=== PATIENT | male | born 1965 | race Caucasian/White ===

== ENCOUNTER 2022-02-20 18:26 | Emergency (ER) | payer OTHER, SELFPAY ==
--- OUTSIDE RECORDS SUMMARY | 2022-02-20 18:29 | XMS REPORT | Continuity of Care Document ---
:1965 Author Organization [facility] t Address [address] [place] [address] Care Team Providers Name Role Phone Pcp, Patient Does Not Have A Primary Care Physician +[id number] Tiffanie Chu DO Attending Clinician Problems Condition Condition Condition Status Onset Resolution Last Treating Co mments Source Name Details Category Date Date Treatment Clinician Date No known No known Disease Unive rs active active ity of problems problems [facility] Allergies, Adverse Reactions, Alerts Allergy Allergy Status Severity Reaction(s) Onset Inactive Treating Comm ents Source Name Type Date Date Clinician Penicill Propensi Active Itching Unive rs ins ty to 9-20 ity of adverse 00:00: [place] reaction 00 [facility] PENICILL Drug Active Med ITCHING Univers INS Class 9-20 ity of 00:00: [place] 00 [facility] NO KNOWN Drug Active Univers ALLERGIE Class ity of S [facility] Social History Social Habit Start Date Stop Date Quantity Comments Source Exposure to Not sure [facility] SARS-CoV-2 (event) Medica l Branch Sex Assigned At [birth year] [facility] 00:00:00 00:00:00 [facility] Smoking Status Start Date Stop Date Source Unknown if ever smoked [facility] Medications Ordered Filled Start Stop Current Ordering Indication Dosage Frequency Signature Comments Components Source Medication Medication Date Date Medication? Clinician (SIG) Name Name levoFLOXaci 2020- No [id number] 500mg Take 1 Univers n 01-23 10- tablet by ity of (LEVAQUIN) 00:00: 04:59 mouth [place] 500 mg 00 :00 every 24 Medical tablet (twenty-fo Branch ur) hours for 9 days. levoFLOXaci 2020- No [id number] 500mg Take 1 [facility] n 01-23 tablet by ity of (LEVAQUIN) 00:00: 04:59 mouth [place] 500 mg 00 :00 every 24 Medical tablet (-fo Branch ur) hours for 9 days. levoFLOXaci 2020- No 500mg 500 mg, U nivers n 01-22 Oral, ity of (LEVAQUIN) 15:15: 14:25 ONCE, 1 [place] as tablet 500 00 :00 dose, On Medic al mg [facility] 01/22/21 at 1015, MICHAEL
Re ason for Anti-Infec tive: Documented Infection< br>Documen vivek Infection Site: Pelvic
Duration of Therapy: 7 days levoFLOXaci No 500mg 500 mg, U nivers n 01-22 Oral, ity of (LEVAQUIN) 15:15: 14:25 ONCE, 1 [place] as tablet 500 00 :00 dose, On Medic al mg [facility] 01/22/21 at 1015, MICHAEL
Re ason for Anti-Infec tive: Documented Infection< br>Documen vivek Infection Site: Pelvic
Duration of Therapy: 7 days acetaminoph No 650mg 650 mg, U nivers en 01-22 Oral, ity of (TYLENOL) 14:00: 13:08 [place]CE[place] 650 [place] :00 dose, On Medic al mg [facility] 01/22/21 at 0900, MICHAEL morpHINE 2020- No 4mg 4 mg, Slow Un piyush injection 4 01-22 IV Push, ity of mg 14:00: 13:08 ONCE, 1 [place] 00 :00 dose, On Medical [facility] 01/22/21 at 0900, STAT ondansetron 2020- No 4mg 4 mg, Slow Univers (ZOFRAN 01-22 IV Push, ity of (PF)) 14:00: 13:08 ONCE, 1 [place] injection 4 00 :00 dose, On Medi alysa mg [facility] 01/22/21 at 0900, MICHAEL acetaminoph No 650mg 650 mg, U nivers en 01-22 Oral, ity of (TYLENOL) 14:00: 13:08 ONCE, [place] 650 00 :00 dose, On Medic al mg [facility] 01/22/21 at 0900, MICHAEL morpHINE No 4mg 4 mg, Slow Un piyush injection 4 01-22 IV Push, ity of mg 14:00: 13:08 ONCE, 1 [place] 00 :00 dose, On Medical [facility] 01/22/21 at 0900, STAT ondansetron No 4mg 4 mg, Slow Univers (ZOFRAN 01-22 IV Push, ity of (PF)) 14:00: 13:08 ONCE, 1 [place] injection 4 00 :00 dose, On Medi alysa mg [facility] 01/22/21 at 0900, MICHAEL Vital Signs Vital Name Observation Time Observation Value Comments Source Body temperature 2021-01-22 14:01:[address] [facility] Systolic blood 2021-01-22 13:00:00 137 mm[Hg] Univer sity of pressure [facility] Diastolic blood 2021-01-22 13:00:00 79 mm[Hg] [facility] Heart rate 2021-01-22 13:00:00 105 /min [facility] Respiratory rate 2021-01-22 13:00:00 26 /min [facility] Oxygen saturation in 2021-01-22 13:00:00 97 /min [facility] Arterial blood by [facility] Pulse oximetry Branch Body height 2021-01-22 12:47:00 175.3 cm [facility] Body weight 2021-01-22 12:47:00 68.04 kg [facility] BMI 2021-01-22 12:47:00 22.15 kg/m2 [facility] Procedures Procedure Date / Time Performed Performing Clinician Linnea ritchie US TESTICULAR TORSION 2021-01-22 13:37:04 [facility] VW 2021-01-22 13:09:00 Tiffanie Chu [facility] COMP. METABOLIC PANEL 2021-01-22 13:03:00 Tiffanie Chu [facility] ([id number]) Medical Branch CBC WITH DIFF 2021-01-22 13:03:00 Tiffanie Chu [facility] URINALYSIS 2021-01-22 13:03:00 Tiffanie Chu [facility] COVID-19 (ID NOW RAPID 2021-01-22 13:03:00 [facility] Branch Encounters Start End Encounter Admission Attending Care Care Encounter Source Date/Time Date/Time Type Type Clinicians Facility Department ID 2021-01-22 2021-01-22 Emergency Vlad [facility] [id number] Univers 07:51:00 10:00:[address] [place] [id number] [facility] [id number] [facility] [id number] [facility] 084 Branch 2021-01-22 2021-01-22 Emergency X [place] ERT [id number] Univers 07:35:00 07:35:00 [facility] Results Test Description Test Time Test Comments Results Result Comments Source CBC WITH DIFF 2021-01-22 14:34:50 Test Item Value Reference Range Interpretation Comme nts WBC (test code = 6690-2) See_Comment H [A utomated message] The system which ge nerated this result transmit vivek reference range: 4.20 - 1 0.70 10*3/?L. The reference r marielos was not used to interpr et this result as normal/abnor mal. RBC (test code = 789-8) See_Comment [Au tomated message] The system which Protein Bar nerated this result transmit vivek reference range: 4.26 - 5 .52 10*6/?L. The reference r marielos was not used to interpr et this result as normal/abnor mal. HGB (test code = 718-7) 14.9 g/dL 12.2-16.4 HCT (test code = 4544-3) 41.9 % 38.4-49.3 MCV (test code = 787-2) 94.4 fL 81.7-95.6 MCH (test code = 785-6) 33.6 pg 26.1-32.7 H MCHC (test code = 786-4) 35.6 g/dL 31.2-35.0 H RDW-SD (test code = 69814-4) 42.3 fL 38.5-51.6 RDW-CV (test code = 788-0) 12.2 % 12.1-15.4 PLT (test code = 777-3) See_Comment [Au tomated message] The system which ge nerated this result transmit vivek reference range: 150 - 32 8 10*3/?L. The reference range was not used to interpret th is result as normal/abnormal . MPV (test code = 03343-1) 10.3 fL 9.8-13.0 NRBC/100 WBC (test code = See_Comment [ Automated message] The 3269584980) system which ge nerated this result transmit vivek reference range: 0.0 - 10 .0 /100 WBCs. The reference r marielos was not used to interpr et this result as normal/abnor mal. NRBC x10^3 (test code = <0.01 See_Comment [Au tomated message] The 7245892139) system which ge nerated this result transmit vivek reference range: 10*3/?L. The reference range was not u sed to interpret this result as normal/abnormal . GRAN MAT (NEUT) % (test code 85.7 % = 770-8) IMM GRAN % (test code = 1.50 % 9197367127) LYMPH % (test code = 736-9) 3.7 % MONO % (test code = 5905-5) 8.7 % EOS % (test code = 713-8) 0.0 % BASO % (test code = 706-2) 0.4 % GRAN MAT x10^3(ANC) (test 23.44 10*3/uL 1.99-6.95 H code = 3840511298) IMM GRAN x10^3 (test code = 0.41 10*3/uL 0.00-0.06 H 3155398925) LYMPH x10^3 (test code = 1.00 10*3/uL 1.09-3.23 L 731-0) MONO x10^3 (test code = 2.39 10*3/uL 0.36-1.02 H 742-7) EOS x10^3 (test code = <0.03 0.06-0.53 L 711-2) BASO x10^3 (test code = 0.12 10*3/uL 0.01-0.09 H 704-7) BANDS (test code = Increased A 7633567089) TOXIC CHANGES (test code = Present A 803-7) Lab Interpretation (test Abnormal code = 33732-7) [facility] WITH [id number] 14:34:50 Test Item Value Reference Range Interpretation Comments WBC (test code = See_Comment H [Automated 2590-2) message] The system which generated this result transmit vivek reference range : 4.20 - 10.70 10*3/?L. The reference range was not used to interpret this result as normal/abnormal . RBC (test code = See_Comment [Automated 709-8) message] The system which generated this result transmit vivek reference range : 4.26 - 5.52 10*6/?L. The reference range was not used to interpret this result as normal/abnormal . HGB (test code = 14.9 g/dL 12.2-16.4 718-7) HCT (test code = 41.9 % 38.4-49.3 4544-3) MCV (test code = 94.4 fL 81.7-95.6 787-2) MCH (test code = 33.6 pg 26.1-32.7 H 785-6) MCHC (test code = 35.6 g/dL 31.2-35.0 H 786-4) RDW-SD (test code = 42.3 fL 38.5-51.6 06354-0) RDW-CV (test code = 12.2 % 12.1-15.4 788-0) PLT (test code = See_Comment [Automated 777-3) message] The system which generated this result transmit vivek reference range : 150 - 328 10*3/ ?L. The reference range was not u sed to interpret th is result as normal/abnormal . MPV (test code = 10.3 fL 9.8-13.0 56629-7) NRBC/100 WBC (test See_Comment [Automat ed code = 7575211249) message] The system which generated this result transmit vivek reference range : 0.0 - 10.0 /100 WBCs. The reference range was not used to interpret this result as normal/abnormal . NRBC x10^3 (test code <0.01 See_Comment [Auto mated = 2435038222) message] The system which generated this result transmit vivek reference range : 10*3/?L. The reference range was not used to interpret this result as normal/abnormal . GRAN MAT (NEUT) % 85.7 % (test code = 770-8) IMM GRAN % (test code 1.50 % = 0799390991) LYMPH % (test code = 3.7 % 736-9) MONO % (test code = 8.7 % 5905-5) EOS % (test code = 0.0 % 713-8) BASO % (test code = 0.4 % 706-2) GRAN MAT x10^3(ANC) 23.44 10*3/uL 1.99-6.95 H (test code = 5443349845) IMM GRAN x10^3 (test 0.41 10*3/uL 0.00-0.06 H code = 5847407810) LYMPH x10^3 (test code 1.00 10*3/uL 1.09-3.23 L = 731-0) MONO x10^3 (test code 2.39 10*3/uL 0.36-1.02 H = 742-7) EOS x10^3 (test code = <0.03 0.06-0.53 L 711-2) BASO x10^3 (test code 0.12 10*3/uL 0.01-0.09 H = 704-7) BANDS (test code = Increased A 1186642139) TOXIC CHANGES (test Present A code = 803-7) Lab Interpretation Abnormal (test code = 43345-0) [facility]. METABOLIC PANEL ([id number])2021-01-22 13:36:07 Test Item Value Reference Range Interpretation Comments NA (test code = 131 mmol/L 135-145 L 3664858970) K (test code = 4.0 mmol/L 3.5-5.0 9834367136) CL (test code = 99 mmol/L 98-108 0783209349) CO2 TOTAL (test code = 21 mmol/L 23-31 L 1813139008) AGAP (test code = 2-16 7010893841) BUN (test code = 12 mg/dL 7-23 8662782389) GLUCOSE (test code = 179 mg/dL 70-110 H 3633774973) CREATININE (test code = 1.01 mg/dL 0.60-1.25 8709449889) TOTAL BILI (test code = 1.4 mg/dL 0.1-1.1 H 8535911950) CALCIUM (test code = 9.4 mg/dL 8.6-10.6 3225469861) T PROTEIN (test code = 8.7 g/dL 6.3-8.2 H 6827455994) ALBUMIN (test code = 4.4 g/dL 3.5-5.0 3424782209) ALK PHOS (test code = 148 U/L 34-122 H 7009445422) ALTv (test code = 56 U/L 5-50 H 1742-6) AST(SGOT) (test code = 69 U/L 13-40 H 7748186051) eGFR (test code = mL/min/1.73m2 0030880725) DARIN (test code = DARIN) Association of Glomerular Filtration Rate (GFR) and Staging of Kidney Disease* + --+ --+ ------+| GFR (mL/min/1.73 m2) ?| With Kidney Damage ?| ?Without Kidney Damage+ --------+ --------+ +| ?>90 ?| ?Stage one ?| ? Normal ?+ ---+ ---+ -------+| ?60-89 ?| ?Stage two ?| ? Decreased GFR ? + --+ --+ ------+| ?30-59 ?| ?Stage three ?| ? Stage three ? + --+ --+ ------+| ?15-29 ?| ?Stage four ? | ? Stage four ?+ ---+ ---+ -------+| ?<15 (or dialysis) ? ?| ?Stage five ? | ? Stage five ?+ ---+ ---+ -------+ *Each stage assumes the associated GFR level has been in effect for at least three months. ?Stages 1 to 5, with or without kidney disease, indicate chronic kidney disease. Notes: Determination of stages one and two (with eGFR >59mL/min/1.73 m2) requires estimation of kidney damage for at least three months as defined by structural or functional abnormalities of the kidney, manifested by either:Pathological abnormalities or Markers of kidney damage (including abnormalities in the composition of the blood or urine or abnormalities in imaging tests). Lab Interpretation Abnormal (test code = 74384-5) [facility]. METABOLIC PANEL ([id number])2021-01-22 13:36:07 Test Item Value Reference Range Interpretation Comments NA (test code = 131 mmol/L 135-145 L 7904427377) K (test code = 4.0 mmol/L 3.5-5.0 1507000316) CL (test code = 99 mmol/L 98-108 5184654655) CO2 TOTAL (test code = 21 mmol/L 23-31 L 3686831786) AGAP (test code = 2-16 1115889830) BUN (test code = 12 mg/dL 7-23 5732028068) GLUCOSE (test code = 179 mg/dL 70-110 H 2604785636) CREATININE (test code = 1.01 mg/dL 0.60-1.25 6587229908) TOTAL BILI (test code = 1.4 mg/dL 0.1-1.1 H 0659025429) CALCIUM (test code = 9.4 mg/dL 8.6-10.6 9214855190) T PROTEIN (test code = 8.7 g/dL 6.3-8.2 H 2324880510) ALBUMIN (test code = 4.4 g/dL 3.5-5.0 7045321486) ALK PHOS (test code = 148 U/L 34-122 H 1409161916) ALTv (test code = 56 U/L 5-50 H 1742-6) AST(SGOT) (test code = 69 U/L 13-40 H 2666218386) eGFR (test code = mL/min/1.73m2 7161419465) DARIN (test code = DARIN) Association of Glomerular Filtration Rate (GFR) and Staging of Kidney Disease* + --+ --+ ------+| GFR (mL/min/1.73 m2) ?| With Kidney Damage ?| ?Without Kidney Damage+ --------+ --------+ +| ?>90 ?| ?Stage one ?| ? Normal ?+ ---+ ---+ -------+| ?60-89 ?| ?Stage two ?| ? Decreased GFR ? + --+ --+ ------+| ?30-59 ?| ?Stage three ?| ? Stage three ? + --+ --+ ------+| ?15-29 ?| ?Stage four ? | ? Stage four ?+ ---+ ---+ -------+| ?<15 (or dialysis) ? ?| ?Stage five ? | ? Stage five ?+ ---+ ---+ -------+ *Each stage assumes the associated GFR level has been in effect for at least three months. ?Stages 1 to 5, with or without kidney disease, indicate chronic kidney disease. Notes: Determination of stages one and two (with eGFR >59mL/min/1.73 m2) requires estimation of kidney damage for at least three months as defined by structural or functional abnormalities of the kidney, manifested by either:Pathological abnormalities or Markers of kidney damage (including abnormalities in the composition of the blood or urine or abnormalities in imaging tests). Lab Interpretation Abnormal (test code = 94707-0) [facility]"
[2022-02-20 20:31] LABS: Urine Blood Negative (Negative); Urine Glucose Negative (Negative); Urine Protein Negative (Negative); Urine Specific Gravity 1.025 (1.005-1.030)
[2022-02-20 20:43] LABS: Barbiturates NEGATIVE (NEGATIVE); Benzodiazepines NEGATIVE (NEGATIVE); Cocaine NEGATIVE (NEGATIVE); METHAMPHETAM NEGATIVE (NEGATIVE); Methadone NEGATIVE (NEGATIVE); Opiates NEGATIVE (NEGATIVE); Phencyclidine NEGATIVE (NEGATIVE); THC Cannibis POSITIVE (NEGATIVE)
[2022-02-20] MEDS ORDERED: PANTOPRAZOLE 40 MG INJ ONE (20:51)
[2022-02-20] MEDS ORDERED: LIDOCAINE VISCOUS 2% SOLN 15 ML UDC ONE (20:51)
[2022-02-20] MEDS ORDERED: MAGNES/ALUMIN/SIMET 30ML UCUP ONE (20:51)
[2022-02-20 20:57] LABS: Albumin 3.6 g/dL (3.4-5.0); Bilirubin Total 0.2 mg/dL (0.2-1.0); Magnesium 2.2 mg/dL (1.8-2.4); Potassium 4.2 mmol/L (3.5-5.1); Protein, Total 7.8 g/dL (6.4-8.2)
[2022-02-20] MEDS ORDERED: BACLOFEN 10 MG TAB ONE (21:03)
[2022-02-20 21:13] LABS: Absolute Lymphocytes (CBC) 4.1 K/uL (0.7-4.9); Hematocrit 45.5 % (39.6-49.0); Lymphocytes % 37.4 % (15.3-44.8); MCV 95.2 fL (80-100); MPV 8.3 fL (7.6-11.3); RBC Red Blood Cell Count 4.78 M/uL (4.33-5.43)
[2022-02-20] MEDS ORDERED: CHLORPROMAZINE 25 MG TAB PO ONE (22:43)
[2022-02-21] MEDS ORDERED: METOCLOPRAMIDE 10 MG/2mL INJ ONE (00:15)
[2022-02-21] MEDS ORDERED: NA CHLORIDE 0.9% 100 ML IV ONE (00:15)
--- NOTE | 2022-02-21 01:04 | ER ---
Nurse's Notes [facility] Name: Sarabjit Schaeffer Age: 57 yrs Sex: Male : 1965 Arrival Date: 02/20/2022 Time: 18:30 Bed DIS2 Private MD: Diagnosis: Intractable hiccups Presentation: 02/20 19:02 Chief complaint: Patient states: Hiccups non stop for two days. Denies pain. ld1 Coronavirus screen: At this time, the client does not indicate any symptoms associated with coronavirus-19. Ebola Screen: No symptoms or risks identified at this time. Initial Sepsis Screen: Does the patient meet any 2 criteria? No. Patient's initial sepsis screen is negative. Does the patient have a suspected source of infection? No. Patient's initial sepsis screen is negative. Risk Assessment: Do you want to hurt yourself or someone else? Patient reports no desire to harm self or others. Onset of symptoms was February 20, 2022 at 19:02. 19:02 Method Of Arrival: Ambulatory ld1 19:02 Acuity: DIANA 4 ld1 Triage Assessment: 19:00 General: Appears in no apparent distress. comfortable, Behavior is calm, cooperative, ld1 appropriate for age. Pain: Denies pain. EENT: No signs and/or symptoms were reported regarding the EENT system. Neuro: Level of Consciousness is awake, alert, obeys commands, Oriented to person, place, time, situation, Appropriate for age. Cardiovascular: Capillary refill < 3 seconds Patient's skin is warm and dry. Respiratory: Airway is patent Respiratory effort is even, unlabored. GI: Abdomen is flat, non-distended. : No signs and/or symptoms were reported regarding the genitourinary system. Derm: No signs and/or symptoms reported regarding the dermatologic system. Musculoskeletal: No signs and/or symptoms reported regarding the musculoskeletal system. Historical: - Allergies: 19:00 PENICILLINS; ld1 19:00 SEAFOOD; ld1 - PMHx: 19:00 Hepatitis C; ld1 - PSHx: 19:00 None; ld1 - Immunization history:: Adult Immunizations up to date, Client reports receiving the 2nd dose of the Covid vaccine. - Social history:: Smoking status: Patient reports the use of cigarette tobacco products, smokes one pack cigarettes per day. Patient/guardian denies using alcohol. Screenin/20 00:20 Abuse screen: Denies threats or abuse. Denies injuries from another. Nutritional kd3 screening: No deficits noted. Tuberculosis screening: No symptoms or risk factors identified. Fall Risk None identified. IV access (20 points). Assessment: 01:10 General: Appears in no apparent distress. Behavior is calm, cooperative. kd3 Vital Signs: 02/20 19:00 BP 128 / 76; Pulse 72; Resp 18; Temp 98.3(TE); Pulse Ox 99% on R/A; Weight 72.57 kg; ld1 Height 5 ft. 9 in. (175.26 cm); Pain 0/10; 02/21 01:10 BP 124 / 73; Pulse 71; Resp 18; Pulse Ox 100% on R/A; kd3 02/20 19:00 Body Mass Index 23.63 (72.57 kg, 175.26 cm) ld1 ED Course: 02/20 18:30 Patient arrived in ED. as 19:00 Arm band placed on right wrist. ld1 19:02 Triage completed. ld1 19:25 Romi Bronson MD is Attending Physician. sd2 20:34 Urine Drug Screen Sent. oe 20:34 Magnesium Sent. oe 20:34 CMP Sent. oe 20:34 CBC with Diff Sent. oe 20:34 Inserted saline lock: 20 gauge in right antecubital area, using aseptic technique. oe Blood collected. 20:49 Karina De Jesus, RN is Primary Nurse. kd3 02/21 00:20 Patient has correct armband on for positive identification. kd3 00:20 No provider procedures requiring assistance completed. kd3 01:11 IV discontinued, intact, bleeding controlled, No redness/swelling at site. Pressure kd3 dressing applied. Administered Medications: 02/20 20:58 CANCELLED (Physician Discretion): ProTONIX (pantoprazole) 40 mg PO once kd3 20:58 Drug: ProTONIX (pantoprazole) 40 mg Route: IVP; Site: right antecubital; kd3 02/21 00:19 Follow up: Response: No adverse reaction kd3 02/20 20:59 Drug: GI Cocktail without - (Maalox Suspension 30 ml, Lidocaine Liquid 2 % 15 kd3 ml) Route: PO; 02/21 00:19 Follow up: Response: No adverse reaction kd3 02/20 21:13 Drug: Baclofen 10 mg Route: PO; kd3 02/21 00:19 Follow up: Response: No adverse reaction kd3 02/20 23:00 Drug: chlorproMAZINE 25 mg Route: PO; kl 02/21 00:19 Follow up: Response: No adverse reaction kd3 02/20 23:12 Not Given (Other Intervention Used): chlorproMAZINE 25 mg IM once 02/21 00:19 Drug: Reglan (metoCLOPramide) 10 mg Route: IVP; Site: right antecubital; kd3 01:11 Follow up: Response: No adverse reaction kd3 Medication: 00:20 VIS not applicable for this client. kd3 Outcome: 01:03 Discharge ordered by . sd2 01:10 Discharged to home ambulatory. kd3 01:10 Condition: stable 01:10 Condition: stable 01:10 Discharge instructions given to patient, Instructed on discharge instructions, follow up and referral plans. Demonstrated understanding of instructions, follow-up care. 01:11 Patient left the ED. kd3 Signatures: Katarina Coombs, RN RN Magui Stokes [place] oe Dibbern, Lauren, RN RN ld1 Karina De Jesus RN RN kd3 Romi Bronson MD MD sd2
--- NOTE | 2022-02-21 01:05 | EDPHYS ---
Physician Documentation [facility] Name: Sarabjit Schaeffer Age: 57 yrs Sex: Male : 1965 Arrival Date: 02/20/2022 Time: 18:30 Bed DIS2 Private MD: ED Physician Romi Bronson HPI: 02/20 19:46 This 57 yrs old Male presents to ER via Ambulatory with complaints of hiccups x2 days. sd2 19:46 57-year-old male with history of hepatitis C who presents with chief complaint of sd2 hiccups that have been intractable for the past 2 days. He states he has tried multiple home remedies and different things he saw online to help with symptoms without relief. He states he is having difficulty sleeping and eating now and he is causing him some soreness in his abdominal area. He denies any symptoms leading up to this including fevers or recent illness. He has not had any nausea, vomiting or diarrhea. He has never had anything similar to this previously. He does not currently take any medications and has not tried any [id number] medications. He denies any substance abuse.. Historical: - Allergies: 19:00 PENICILLINS; ld1 19:00 SEAFOOD; ld1 - PMHx: 19:00 Hepatitis C; ld1 - PSHx: 19:00 None; ld1 - Immunization history:: Adult Immunizations up to date, Client reports receiving the 2nd dose of the Covid vaccine. - Social history:: Smoking status: Patient reports the use of cigarette tobacco products, smokes one pack cigarettes per day. Patient/guardian denies using alcohol. ROS: 19:46 Constitutional: Negative for fever, chills, and weight loss, Eyes: Negative for injury, sd2 pain, redness, and discharge, ENT: Negative for injury, pain, and discharge, Neck: Negative for injury, pain, and swelling, Cardiovascular: Negative for chest pain, palpitations, and edema, Respiratory: Negative for shortness of breath, cough, wheezing. Abdomen/GI: Negative for abdominal pain, nausea, vomiting, diarrhea. MS/Extremity: Negative for injury and deformity, Skin: Negative for injury, rash, and discoloration, Neuro: Negative for headache, numbness and tingling. Positive for hiccups. Exam: 19:46 Constitutional: This is a well developed, well nourished patient who is awake, alert, sd2 and in no acute distress. Pt noted to have hiccups throughout exam. Head/Face: Normocephalic, atraumatic. Eyes: EOMI, normal conjunctiva bilaterally Chest/axilla: Normal chest wall appearance and motion. Nontender with no deformity. Cardiovascular: Regular rate and rhythm with a normal S1 and S2. No gallops, murmurs, or rubs. 2+ distal pulses. Respiratory: Lungs have equal breath sounds bilaterally, clear to auscultation and percussion. No rales, rhonchi or wheezes noted. No increased work of breathing, no retractions or nasal flaring. Abdomen/GI: Soft, non-tender, with normal bowel sounds. No guarding or rebound. No evidence of tenderness throughout. Skin: Warm, dry with normal turgor. Normal color with no rashes, no lesions, and no evidence of cellulitis. MS/ Extremity: Pulses equal, no cyanosis. Neurovascular intact. Full, normal range of motion. Ambulatory without difficulty. Psych: Awake, alert, with orientation to person, place and time. Behavior, mood, and affect are within normal limits. 23:51 ECG was reviewed by the Attending Physician. NSR, rate 67, PACs present, no STEMI sd2 criteria Vital Signs: 19:00 BP 128 / 76; Pulse 72; Resp 18; Temp 98.3(TE); Pulse Ox 99% on R/A; Weight 72.57 kg; ld1 Height 5 ft. 9 in. (175.26 cm); Pain 0/10; 02/21 01:10 BP 124 / 73; Pulse 71; Resp 18; Pulse Ox 100% on R/A; kd3 02/20 19:00 Body Mass Index 23.63 (72.57 kg, 175.26 cm) ld1 MDM: 02/20 19:25 Patient medically screened. sd2 19:46 Differential Diagnosis Nerve abnormality, toxidrome, medication induced, GERD among sd2 others. Data reviewed: vital signs, nurses notes. 02/21 01:01 Data reviewed: lab test result(s), EKG. Counseling: I had a detailed discussion with sd2 the patient and/or guardian regarding: the historical points, exam findings, and any diagnostic results supporting the discharge/admit diagnosis, lab results, the need for outpatient follow up, to return to the emergency department if symptoms worsen or persist or if there are any questions or concerns that arise at home. Medical screen evaluation completed. EMTALA emergency medical condition absent. ED course: Hiccups significantly improved after treatment. Advised of need for continued supportive care and outpatient follow up with PCP. Verbalizes understanding of discharge plan and strict return precautions.. 02/20 19:46 Order name: CBC with Diff; Complete Time: 21:41 sd2 02/20 19:46 Order name: CMP; Complete Time: 21:41 sd2 02/20 19:46 Order name: Magnesium; Complete Time: 21:41 sd2 02/20 19:46 Order name: Urine Drug Screen; Complete Time: 21:41 sd2 02/20 19:46 Order name: Ethanol; Complete Time: 22:35 sd2 02/20 20:31 Order name: Urine Dipstick-Ancillary; Complete Time: 21:41 EDMS 02/20 19:46 Order name: Urine Dipstick-Ancillary (obtain specimen); Complete Time: 20:34 sd2 02/20 23:25 Order name: EKG - Nurse/Tech; Complete Time: 00:19 sd2 Administered Medications: 02/20 20:58 CANCELLED (Physician Discretion): ProTONIX (pantoprazole) 40 mg PO once kd3 20:58 Drug: ProTONIX (pantoprazole) 40 mg Route: IVP; Site: right antecubital; kd3 02/21 00:19 Follow up: Response: No adverse reaction kd3 02/20 20:59 Drug: GI Cocktail without - (Maalox Suspension 30 ml, Lidocaine Liquid 2 % 15 kd3 ml) Route: PO; 02/21 00:19 Follow up: Response: No adverse reaction kd3 02/20 21:13 Drug: Baclofen 10 mg Route: PO; kd3 02/21 00:19 Follow up: Response: No adverse reaction kd3 02/20 23:00 Drug: chlorproMAZINE 25 mg Route: PO; kl 02/21 00:19 Follow up: Response: No adverse reaction kd3 02/20 23:12 Not Given (Other Intervention Used): chlorproMAZINE 25 mg IM once kl 02/21 00:19 Drug: Reglan (metoCLOPramide) 10 mg Route: IVP; Site: right antecubital; kd3 01:11 Follow up: Response: No adverse reaction kd3 Disposition Summary: 02/21/22 01:03 Discharge Ordered Location: Home sd2 Problem: new sd2 Symptoms: have improved sd2 Condition: Stable sd2 Diagnosis - Intractable hiccups sd2 Followup: sd2 - With: Private Physician - When: 2 - 3 days - Reason: Recheck today's complaints, Continuance of care, Re-evaluation by your physician Discharge Instructions: - Discharge Summary Sheet sd2 - Hiccups sd2 Forms: - Medication Reconciliation Form sd2 - Thank You Letter sd2 - Antibiotic Education sd2 - Prescription Opioid Use sd2 Signatures: Dispatcher [employer] EDKatarina Fuentes RN RN kl Jackie Arndt RN RN ld1 Karina De Jesus RN RN kd3 Romi Bronson MD MD sd2 Corrections: (The following items were deleted from the chart) 02/20 20:58 19:46 ProTONIX (pantoprazole) 40 mg PO once ordered. sd2 kd3
[2022-02-21 01:21] VITALS: TEMP 98.3
[2022-02-21 01:22] VITALS: BP 124/73; O2SAT 100
--- NOTE | 2022-02-21 16:14 | EKG ---
Test Date: 2022-02-20 Test Time: 23:49:58 Threading Machine Feeder Automatic: SNEHA MEASUREMENT RESULTS: Intervals: Rate: 67 FL: 152 QRSD: 88 QT: 384 QTc: 405 [place]: P: 68 FL: 152 QRS: 56 T: 74 INTERPRETIVE STATEMENTS: Sinus rhythm with premature atrial complexes Otherwise normal ECG Compared to ECG 04/17/2016 20:08:57 Atrial premature complex(es) now present Electronically Signed On 02-21-22 16:13:27 CDT by Kwan Mosquera
== END 2022-02-21 01:11 | disposition home or self-care (01) ==
LOC: ER 18:26
DX: R06.6 Hiccough (principal); F17.210 Nicotine dependence, cigarettes, uncomplicated; Z88.0 Allergy status to penicillin; Z88.2 Allergy status to sulfonamides
CPT/HCPCS: 36415; 80053; 80307; 80320; 81003; 83735; 85025; 93005; 96374; 96375; 99283; C9113; J2765; Q0161

== ENCOUNTER 2023-10-27 10:09 | Emergency (ER) | payer OTHER ==
--- NOTE | 2023-10-27 10:29 | ER ---
Nurse's Notes [facility] Name: Sarabjit Schaeffer Age: 58 yrs Sex: Male : 1965 Arrival Date: 10/27/2023 Time: 10:09 Bed IW3 Private MD: Diagnosis: Toxic effect of venom of bees, accidental (unintentional) Presentation: 10/26 10:21 Chief complaint: Patient states: Bee stings to right hand yesterday afternoon, woke jl7 this morning with right hand swelling, swelling on left side of neck. Coronavirus screen: At this time, the client does not indicate any symptoms associated with coronavirus-19. Ebola Screen: No symptoms or risks identified at this time. Onset: The symptoms/episode began/occurred yesterday. Anaphylaxis evaluation, no signs or symptoms of anaphylaxis were noted. Initial Sepsis Screen: Does the patient meet any 2 criteria? No. Patient's initial sepsis screen is negative. Does the patient have a suspected source of infection? No. Patient's initial sepsis screen is negative. Risk Assessment: Do you want to hurt yourself or someone else? Patient reports no desire to harm self or others. Onset of symptoms was October 26, 2023. 10:21 Method Of Arrival: Ambulatory 7 10:21 Acuity: DIANA 4 jl7 Triage Assessment: 10:23 General: Appears in no apparent distress. uncomfortable, Behavior is calm, cooperative, jl7 appropriate for age. Pain: Complains of pain in right hand Pain currently is 8 out of 10 on a pain scale. Neuro: Level of Consciousness is awake, alert, obeys commands, Oriented to person, place, time, situation. Cardiovascular: Patient's skin is warm and dry. Respiratory: Airway is patent Respiratory effort is even, unlabored, Respiratory pattern is regular, symmetrical. Derm: Skin is pink, warm \T\ dry. Musculoskeletal: Swelling present in right hand. Historical: - Allergies: 10:23 PENICILLINS; jl7 10:23 SEAFOOD; jl7 10:23 Bees; jl7 - Home Meds: 10:23 None [Active]; jl7 - PMHx: 10:23 Hepatitis C; jl7 - PSHx: 10:23 None; jl7 - Immunization history:: Adult Immunizations unknown. - Infectious Disease History:: Denies. - Social history:: Smoking status: Patient reports the use of cigarette tobacco products, smokes 1.5 packs per day. - Family history:: not pertinent. Assessment: 10:22 Reassessment: Dr. Newman in triage assessing pt. jl7 Vital Signs: 10:21 BP 152 / 81; Pulse 77; Resp 17; Temp 98.1; Pulse Ox 98% ; Weight 72.57 kg; Height 5 ft. jl7 9 in. ; Pain 8/10; 10:21 Body Mass Index 23.63 (72.57 kg, 175.26 cm) jl7 10:21 Pain Scale: Adult jl7 ED Course: 10:14 Patient arrived in ED. rg4 10:14 Bill Newman MD is Attending Physician. rt 10:23 Triage completed. jl7 10:23 Arm band placed on right wrist. Patient placed in waiting room, Patient notified of jl7 wait time. 10:41 Patient has correct armband on for positive identification. Provided Education on: d/c. jl7 10:41 No provider procedures requiring assistance completed. Patient did not have IV access jl7 during this emergency room visit. Administered Medications: No medications were administered Medication: 10:41 VIS not applicable for this client. jl7 Outcome: 10:28 Discharge ordered by . rt 10:41 Discharged to home ambulatory, jl7 10:41 Condition: stable 10:41 Discharge instructions given to patient, Instructed on discharge instructions, follow up and referral plans. medication usage, Demonstrated understanding of instructions, follow-up care, medications, Prescriptions given X 2, 10:42 Patient left the ED. jl7 Signatures: Jesenia Guerrero rg4 Maurilio Pnieda RN RN jl7 Bill Newman MD MD rt
--- NOTE | 2023-10-27 10:29 | EDPHYS ---
Physician Documentation [facility] Name: Sarabjit Schaeffer Age: 58 yrs Sex: Male : 1965 Arrival Date: 10/27/2023 Time: 10: Bed IW3 Private MD: ED Physician Bill Newman HPI: 10/26 10:29 This 58 yrs old Male presents to ER via Ambulatory with complaints of Bee Sting. rt 10:29 Patient presents to the ED with bee sting yesterday. Patient had a bee sting to the rt right hand, chest. Patient took Benadryl, yesterday and this morning. States he has continued swelling to the right hand. Denies other acute complaints at this time, symptoms are mild in severity, no other aggravating or alleviating factors.. Historical: - Allergies: 10: PENICILLINS; jl7 10:23 SEAFOOD; jl7 10:23 Bees; jl7 - Home Meds: 10: None [Active]; jl7 - PMHx: 10: Hepatitis C; jl7 - PSHx: 10:23 None; jl7 - Immunization history:: Adult Immunizations unknown. - Infectious Disease History:: Denies. - Social history:: Smoking status: Patient reports the use of cigarette tobacco products, smokes 1.5 packs per day. - Family history:: not pertinent. ROS: 10:29 Constitutional: Negative for fever, chills, and weight loss, Cardiovascular: Negative rt for chest pain, palpitations, and edema, Respiratory: Negative for shortness of breath, cough, wheezing, and pleuritic chest pain, Abdomen/GI: Negative for abdominal pain, nausea, vomiting, diarrhea, and constipation, Neuro: Negative for headache, weakness, numbness, tingling, and seizure, 10:29 MS/extremity: Positive for swelling, Negative for injury or acute deformity, Exam: 10:29 Constitutional: This is a well developed, well nourished patient who is awake, alert, rt and in no acute distress. Head/Face: Normocephalic, atraumatic. Chest/axilla: Normal chest wall appearance and motion. Nontender with no deformity. No lesions are appreciated. Cardiovascular: Regular rate and rhythm with a normal S1 and S2. No gallops, murmurs, or rubs. Normal PMI, no JVD. No pulse deficits. Respiratory: Lungs have equal breath sounds bilaterally, clear to auscultation and percussion. No rales, rhonchi or wheezes noted. No increased work of breathing, no retractions or nasal flaring. Abdomen/GI: Soft, non-tender, with normal bowel sounds. No distension or tympany. No guarding or rebound. No evidence of tenderness throughout. Neuro: Awake and alert, GCS 15, oriented to person, place, time, and situation. Cranial nerves II-XII grossly intact. Motor strength 5/5 in all extremities. Sensory grossly intact. Cerebellar exam normal. Normal gait. 10:29 ENT: No oral or pharyngeal swelling. 10:29 Musculoskeletal/extremity: Edema to the right hand without warmth, erythema, pulses, motor, sensation intact. Vital Signs: 10:21 BP 152 / 81; Pulse 77; Resp 17; Temp 98.1; Pulse Ox 98% ; Weight 72.57 kg; Height 5 ft. jl7 9 in. ; Pain 8/10; 10:21 Body Mass Index 23.63 (72.57 kg, 175.26 cm) jl7 10:21 Pain Scale: Adult jl7 MDM: 10:28 Patient medically screened. rt 10:29 Differential Diagnosis Bee sting, localized reaction. Data reviewed: vital signs. I rt considered the following discharge prescriptions or medication management in the emergency department Medications were administered in the Emergency Department. See MAR. Counseling: I had a detailed discussion with the patient and/or guardian regarding the historical points, exam findings, and any diagnostic results supporting the discharge/admit diagnosis, the need for outpatient follow up, to return to the emergency department if symptoms worsen or persist or if there are any questions or concerns that arise at home. ED course: Patient shows signs of localized reaction only, no signs of anaphylaxis, cellulitis. Antibiotics are not indicated. Will start patient on steroids, patient instructed on EpiPen use should he develop anaphylaxis.. Administered Medications: No medications were administered Disposition Summary: 10/27/23 10:28 Discharge Ordered Notes: Location: Home rt Problem: new rt Symptoms: are unchanged rt Condition: Stable rt Diagnosis - Toxic effect of venom of bees, accidental (unintentional) rt Followup: rt - With: Private Physician - When: 2 - 3 days - Reason: Discharge Instructions: - Discharge Summary Sheet rt - Bee, Wasp, or Hornet Sting, Adult rt Forms: - Medication Reconciliation Form rt - Antibiotic Education rt - Prescription Opioid Use rt - Patient Portal Instructions rt - Leadership Thank You Letter rt Prescriptions: - EpiPen 0.3 mg/0.3 mL Injection Auto-Injector - administer 0.3 milliliter INTRAMUSCULAR route once; 1 Each; Refills: 0, Product rt Selection Permitted - Prednisone 20 mg Oral Tablet - take 2 tablets ORAL route once daily for 5 days; 10 tablet; Refills: 0, Product rt Selection Permitted Signatures: Maurilio Pineda RN RN jl7 Bill Newman MD MD rt
[2023-10-27 18:11] VITALS: BP 152/81; TEMP 98.1; O2SAT 98
== END 2023-10-27 10:42 | disposition home or self-care (01) ==
LOC: ER 10:09
DX: T63.441A Toxic effect of venom of bees, accidental (unintentional), initial encounter (principal); Z91.030 Bee allergy status
CPT/HCPCS: 99283